=== PATIENT | female | born 1980 ===

== ENCOUNTER 2018-09-02 10:13 | Inpatient (IN) | payer OTHER ==
[~2018-09-02] VITALS: Ht 160 cm; Wt 86.6 kg
[~2018-09-02 10:13] MED LIST: PERCOCET 5-3251 EACH PO; PRENATAL TABLE1 EAC1 PO
[2018-09-17] MEDS ORDERED: PRENATABS FA T1 EACH PO (10:51)
[2018-09-17] MEDS ORDERED: SYMBICORT 16010.2 GM IH (10:51)
[2018-09-17] MEDS ORDERED: AMPICILLIN PO (10:55)
[2018-09-21] MEDS ORDERED: PERCOCET 5-3251 EACH PO (08:33)
== END 2018-09-21 10:59 | disposition home or self-care (01) | DRG 785 ==
LOC: LDR 09-18 10:43 → OB/GYN 09-18 10:43
PROVIDERS: Specialist
PROC: 0UL70ZZ Occlusion of Bilateral Fallopian Tubes, Open Approach (ICD-10-PCS; 2018-09-18)
PROC: 4A1HXCZ Monitoring of Products of Conception, Cardiac Rate, External Approach (ICD-10-PCS; 2018-09-18)
PROC: 10D00Z1 Extraction of Products of Conception, Low, Open Approach (ICD-10-PCS; principal; 2018-09-18 17:00)
DX: O82 Encounter for cesarean delivery without indication (principal); Z3A.38 38 weeks gestation of pregnancy; Z37.0 Single live birth; Z30.2 Encounter for sterilization; Z22.330 Carrier of Group B streptococcus